=== PATIENT | male | born 1950 | race Caucasian/White ===

== ENCOUNTER 2017-09-06 09:46 | Outpatient (CLI) | payer OTHER | END 2017-09-06 12:24 | disposition home or self-care (01) | LOC: RAD 09:46 | DX: S42.201A Unspecified fracture of upper end of right humerus, initial encounter for closed fracture (principal) ==

== ENCOUNTER 2017-09-06 10:08 | Outpatient (CLI) | payer OTHER | END 2017-09-06 12:24 | disposition home or self-care (01) | LOC: MRI 10:08 | DX: S42.201A Unspecified fracture of upper end of right humerus, initial encounter for closed fracture (principal) | CPT/HCPCS: 73221 ==